=== PATIENT | female | born 1960 | race Caucasian/White ===

== ENCOUNTER 2020-05-20 13:42 | Outpatient (CLI) | payer OTHER ==
--- NOTE | 2020-05-20 14:20 | RAD ---
EXAM: XR Lumbar Spine 2 Or 3 View PROVIDED CLINICAL HISTORY: Low back pain. COMPARISON: None FINDINGS: AP and lateral views lumbar spine are obtained with weightbearing. 5 nonrib-bearing lumbar-type verte bral bodies are present. Mild osteophytes are seen involving the lower thoracic spine as well as lower lumbar spine. The vertebral body heights are within normal limits. There does appear to be mild narrowing of the L5-S1 intervertebral disc space. The vertebral body heights are within normal limits. No obvious fracture is seen, and there is no subluxation involving the lumbar spine. IMPRESSION: Mild degenerative changes seen in the lower thoracic as well as involving the lower lumbar spine.
--- NOTE | 2020-05-20 14:21 | RAD ---
XR Thoracic Spine 3 V STANDARD: 05/20/2020 12:00 AM Back pain COMPARISON: None FINDINGS: Fracture: None. Alignment: Spinal alignment appears within normal limits. Degenerative Change: There is mild multilevel disc degenerative disease of the thoracic spine. Prevertebral soft tissues: Unremarkable IMPRESSION: Mild thoracic spondylosis
--- NOTE | 2020-05-20 14:22 | RAD ---
EXAM: XR Sacroiliac Joints >=3 View DATE: 05/20/2020 12:00 AM INDICATION: Sacroiliitis COMPARISON: None. FINDING: Bone mineralization appears normal. No paravertebral erosions are evident. SI joints appear radiographically normal. IMPRESSION:SI joints appear radiographically normal
== END 2020-05-20 13:43 | disposition home or self-care (01) ==
LOC: BICRAD 13:42
PROVIDERS: ATTEND Internal Medicine Rheumatology
DX: M54.5 Low back pain (principal); M54.6 Pain in thoracic spine; M46.1 Sacroiliitis, not elsewhere classified; M47.814 Spondylosis without myelopathy or radiculopathy, thoracic region; M47.816 Spondylosis without myelopathy or radiculopathy, lumbar region
CPT/HCPCS: 72072; 72100; 72202

== ENCOUNTER 2024-09-26 09:06 | Outpatient (CLI) | payer BC ==
[2024-09-26 11:24] LABS: #Basophils 0.05 10x3/uL (0.0-0.2); %Basophils 0.7 % (0.0-1.0); %Eosinophils 2.3 % (0.0-10.0); %Lymphocytes 22.3 % (21.0-51.0); %Neutrophils 66.4 % (42.0-75.0); Hematocrit 42.3 % (36.0-47.0); Hemoglobin 13.4 g/dL (12.0-16.0); Mean Corpuscular HGB CONC 31.7 g/dL (32.0-36.0); Mean Corpuscular Hemoglobin 30.2 pg (27.0-31.0); Mean Corpuscular Volume 95.3 fL (78.0-98.0); Mean Platelet Volume 11.5 fL (7.4-10.4); Platelet Count 338 10x3/uL (130-400); RBC Distribution Width 15.8 % (11.5-14.5); Red Blood Cell (RBC) Count 4.44 mill/uL (4.20-5.40)
[2024-09-26 11:41] LABS: Prothrombin Time 12.6 sec (12.0-14.7)
[2024-09-26 13:07] LABS: Anion Gap 12 mmol/L (10-20); BUN (Urea Nitrogen) 10 mg/dL (9.8-20.1); Calc. Creatinine Clearance 0 mL/min (70-130); Calcium 9.2 mg/dL (7.8-10.44); Carbon Dioxide 26 mmol/L (23-31); Chloride 102 mmol/L (98-107); Estimated GFR 86; Glucose 86 mg/dL (80-115); Potassium 4.2 mmol/L (3.5-5.1); Sodium 136 mmol/L (136-145)
== END 2024-09-26 09:07 | disposition home or self-care (01) ==
LOC: LABBT 09:06
PROVIDERS: ATTEND Orthopaedic Surgery
DX: Z01.818 Encounter for other preprocedural examination (principal); M17.12 Unilateral primary osteoarthritis, left knee
CPT/HCPCS: 80048; 85025; 85610; 87081; 93005; 93010

== ENCOUNTER 2024-09-26 10:15 | Outpatient (CLI) | payer OTHER | END 2024-09-26 10:16 | disposition home or self-care (01) | LOC: CT 10:15 | PROVIDERS: ATTEND Orthopaedic Surgery | DX: M17.12 Unilateral primary osteoarthritis, left knee (principal); M46.1 Sacroiliitis, not elsewhere classified ==